=== PATIENT | male | born 1975 | race Caucasian/White ===

== ENCOUNTER 2024-08-10 19:00 | Emergency (ER) | payer SELFPAY ==
[2024-08-10 19:20] VITALS: BP 143/98; PULSE 79; RESP 18; TEMP 98.3; BMI 27.9
== END 2024-08-10 20:45 | disposition home or self-care (01) ==
LOC: JERFT 19:00
DX: S63.501A Unspecified sprain of right wrist, initial encounter (principal); W01.0XXA Fall on same level from slipping, tripping and stumbling without subsequent striking against object, initial encounter; Y99.0 Civilian activity done for income or pay
CPT/HCPCS: 73090-TC-RT-FY; 73110-TC-RT-FY; 73130-TC-RT-FY; 99283-25